=== PATIENT | female | born 2000 | race Two or more races ===

== ENCOUNTER 2020-07-05 22:10 | Inpatient (IN) | payer MEDICAID ==
[2020-07-05] MEDS ORDERED: Cyclobenzaprine 10 MG Tab PO ONE (22:49)
[2020-07-05] MEDS ORDERED: Sodium Chloride 0.9% 10 ML Syringe FLUSH PRN (22:50)
[2020-07-05] MEDS ORDERED: Sodium Chloride 0.9% 10 ML SDV IV PRN (22:50)
[2020-07-05] MEDS ORDERED: Sodium Chloride 0.9% 2.5 ML Syringe FLUSH PRN (22:50)
[2020-07-05] MEDS: Lactated Ringers 1,000 ML IV SCH ×2 (23:00→23:47)
[2020-07-05] MEDS ORDERED: Cyclobenzaprine 10 MG Tab ONE (23:13)
--- NOTE | 2020-07-05 23:16 | PCM.SN.2 ---
- Free Text/Narrative Note: presenting to L&D at 37 3/7 weeks (ZIA: 07/23/20) with complaints of severe pelvic pain/pressure. States that she was adjusted by a chiropractor on Monday (07/01) due to increasing pelvic pain/discomfort. Says that she felt better for a few days, but now it is back. She describes it as intermittent and sharp in low groin. Reports some nausea, but states, "I've been dealing with that my whole ". Also reports some loose stool today. Denies feeling contractions; LOF; vaginal itching, odor, discharge, or bleeding. SVE by nurse noted cervix as long, thick, and closed, -3 station. Vertex presentation by George's and confirmed by handheld ultrasound. Afebrile; VSS. Discuss starting IV and administering a fluid bolus to help with uterine irritability. Will also order 10mg Flexeril.
--- NOTE | 2020-07-06 01:17 | US ---
INDICATION: Amniotic fluid assessment. TECHNIQUE: Ultrasound OB pelvis transabdominal. Real-time medina-scale imaging of the fetus was performed as well as color Doppler and spectral Doppler analysis of the umbilical artery. COMPARISON: None FINDINGS: Clinical Age: 37 weeks 3 days (ZIA 07/23/2020) Sonographic imaging demonstrates a single living intrauterine gestation. Fetus demonstrates a regular cardiac rate of 136 beats per minute. Fetus has a cephalic orientation. The placenta lies anterior without evidence of placenta previa. Amniotic fluid volume appears normal. Amniotic fluid index: 9.5 cm. Cervix is closed measuring 4.1 centimeters. The following biometric measurements were obtained: Biparietal diameter: 9.0 centimeters corresponding to 36 weeks 3 days. Head circumference: 33.5 centimeters corresponding to 38 weeks 2 days. Abdominal circumference: 33.0 centimeters corresponding to 36 weeks 6 days. Femur length: 7.1 centimeters corresponding to 36 weeks 3 days. The weight is estimated at 3056 grams, the 44th percentile. IMPRESSION.: 1. Single live intrauterine gestation with a clinical age of 37 weeks 3 days in vertex presentation. 2. Estimated weight of 3056 grams which is at the 44th percentile. 3. Anterior placenta without perigestational bleed. 4. Normal amniotic fluid index. Dictated by Lyle Barrera MD @ Jul 06 2020 1:11AM Signed by Dr. Lyle Barrera @ Jul 06 2020 1:16AM
[2020-07-06] MEDS ORDERED: Lactated Ringers 1,000 ML IV SCH ×2 (01:45→03:15)
[2020-07-06] MEDS ORDERED: Sodium Chloride 0.9% 10 ML Syringe FLUSH PRN (01:45)
[2020-07-06] MEDS ORDERED: Citric Acid/Sodium Citrate Solution 30 ML Cup PO ONE (01:45)
[2020-07-06] MEDS ORDERED: Sodium Chloride 0.9% 10 ML SDV IV PRN (01:45)
[2020-07-06] MEDS ORDERED: Oxytocin/0.9 % Sodium Chloride 30 UNIT/500 ML BAG IV SCH (01:45)
[2020-07-06] MEDS ORDERED: Sodium Chloride 0.9% 2.5 ML Syringe FLUSH PRN (01:45)
[2020-07-06] MEDS ORDERED: Morphine PF 10 MG/10 ML SDV ONE (01:56)
[2020-07-06] MEDS ORDERED: Propofol 200 MG/20 ML SDV ONE (01:56)
[2020-07-06] MEDS ORDERED: Oxytocin/0.9 % Sodium Chloride 30 UNIT/500 ML BAG ONE (02:02)
[2020-07-06] MEDS ORDERED: Octyl 2-Cyanoacrylate 1 Tube ONE (02:17)
--- NOTE | 2020-07-06 02:17 | PCM.PREANE ---
Preanesthetic Assessment - Procedure Proposed Procedure: emergency section - Anesthesia/Transfusion/Family Hx Anesthesia History: No Prior Anesthesia (previous epidural) Family History of Anesthesia Reaction: Yes Transfusion History: No Prior Transfusion(s) - Review of Systems General: No Symptoms Pulmonary: No Symptoms Cardiovascular: No Symptoms Gastrointestinal: No Symptoms Neurological: No Symptoms Other: Reports: None - Physical Assessment ASA Class: 2E Mental Status: Alert & Oriented x3 Airway Class: Mallampati = 1 Dentition: Reports: Normal Dentition Thyro-Mental Finger Breadths: 3 Mouth Opening Finger Breadths: 3 ROM/Head Extension: Full Lungs: Clear to Auscultation, Normal Respiratory Effort Cardiovascular: Regular Rate, Regular Rhythm - Lab Values: Laboratory Last Values WBC 7.39 K/uL (4.0-11.0) 07/06/20 02:00 RBC 3.63 M/uL (4.30-5.90) L 07/06/20 02:00 Hgb 10.3 g/dL (12.0-16.0) L 07/06/20 02:00 Hct 31.3 % (36.0-46.0) L 07/06/20 02:00 MCV 86.2 fL (80.0-98.0) 07/06/20 02:00 MCH 28.4 pg (27.0-32.0) 07/06/20 02:00 MCHC 32.9 g/dL (31.0-37.0) 07/06/20 02:00 RDW Std Deviation 41.8 fl (28.0-62.0) 07/06/20 02:00 RDW Coeff of Eliane 13 % (11.0-15.0) 07/06/20 02:00 Plt Count 157 K/uL (150-400) 07/06/20 02:00 MPV 10.40 fL (7.40-12.00) 07/06/20 02:00 Nucleated RBC % 0.0 /100WBC 07/06/20 02:00 Nucleated RBCs # 0 K/uL 07/06/20 02:00 SARS-CoV-2 RNA (URI) NEGATIVE (NEGATIVE) 07/05/20 23:30 - Allergies Allergies/Adverse Reactions: Allergies Allergy/AdvReac Type Severity Reaction Status Date / Time No Known Allergies Allergy Verified 07/06/20 02:10 - Blood Blood Available: Yes Product(s) Available: PRBC - Anesthesia Plan Pre-Op Medication Ordered: Antacids - Acknowledgements Anesthesia Type Planned: Spinal Pt an Appropriate Candidate for the Planned Anesthesia: Yes Alternatives and Risks of Anesthesia Discussed w Pt/Guardian: Yes Pt/Guardian Understands and Agrees with Anesthesia Plan: Yes PreAnesthesia Questionnaire - CURRENT (IN HOUSE) MEDS Current Meds: Current Medications Lactated Ringer's (Ringers, Lactated) 1,000 mls @ 999 mls/hr IV ASDIRECTED [facility] Last Admin: 07/05/20 23:47 Dose: 999 mls/hr Documented by: Lactated Ringer's (Ringers, Lactated) 1,000 mls @ 500 mls/hr IV BOLUS [facility] Oxytocin/Sodium Chloride (Oxytocin 30 Unit/500 Ml-Ns) 30 unit in 500 mls @ 250 mls/hr IV TITRATE [facility] Sodium Chloride (Saline Flush) 10 ml FLUSH ASDIRECTED PRN PRN Reason: Keep Vein Open Sodium Chloride (Saline Flush) 2.5 ml FLUSH ASDIRECTED PRN PRN Reason: Keep Vein Open Sodium Chloride (Normal Saline) 10 ml IV ASDIRECTED PRN PRN Reason: IV Use Sodium Chloride (Saline Flush) 10 ml FLUSH ASDIRECTED PRN PRN Reason: Keep Vein Open Sodium Chloride (Saline Flush) 2.5 ml FLUSH ASDIRECTED PRN PRN Reason: Keep Vein Open Sodium Chloride (Normal Saline) 10 ml IV ASDIRECTED PRN PRN Reason: IV Use Discontinued Medications Citric Acid/Sodium Citrate (Bicitra Solution) 30 ml PO ONETIME ONE Stop: 07/06/20 01:46 Cyclobenzaprine HCl (Flexeril) 10 mg PO ONETIME ONE Stop: 07/05/20 22:50 Last Admin: 07/05/20 23:16 Dose: 10 mg Documented by: Cyclobenzaprine HCl (Flexeril) Confirm Administered Dose 10 mg .ROUTE .STK-MED ONE Stop: 07/05/20 23:14 Cefazolin Sodium/Dextrose (Ancef 2 Gm/50 Ml) Confirm Administered Dose 50 mls @ as directed .ROUTE .STK-MED ONE Stop: 07/06/20 02:03 Oxytocin/Sodium Chloride (Oxytocin 30 Unit/500 Ml-Ns) Confirm Administered Dose 30 unit in 500 mls @ as directed .ROUTE .STK-MED ONE Stop: 07/06/20 02:03 Morphine Sulfate (Duramorph Pf) Confirm Administered Dose 10 mg .ROUTE .STK-MED ONE Stop: 07/06/20 01:57 Propofol (Diprivan 20 Ml) Confirm Administered Dose 200 mg .ROUTE .STK-MED ONE Stop: 07/06/20 01:57
[2020-07-06] MEDS ORDERED: ePHEDrine 50 MG/ML SDV ONE (02:39)
[2020-07-06] MEDS ORDERED: Ondansetron 4 MG/2 ML SDV ONE (02:49)
[2020-07-06] MEDS ORDERED: Acetaminophen/oxyCODONE 325-5 MG Tab PO PRN ×2 (03:06→03:12)
[2020-07-06] MEDS ORDERED: Nalbuphine 10 MG/1 ML Vial IVPUSH PRN (03:06)
[2020-07-06] MEDS ORDERED: fentaNYL 100 MCG/2 ML SDV IVPUSH PRN (03:06)
[2020-07-06] MEDS ORDERED: Bisacodyl 10 MG Supp RECTAL PRN (03:12)
[2020-07-06] MEDS ORDERED: Misoprostol 200 MCG Tab RECTAL PRN (03:12)
[2020-07-06] MEDS ORDERED: Methylergonovine 0.2 MG/1 ML Amp IM PRN (03:12)
[2020-07-06] MEDS ORDERED: Oxytocin 10 Units/1 ML SDV IM PRN (03:12)
[2020-07-06] MEDS ORDERED: Ondansetron 4 MG/2 ML SDV IVPUSH PRN (03:12)
[2020-07-06] MEDS ORDERED: Lanolin 100% Cream 7 GM Tube TOP PRN (03:12)
[2020-07-06] MEDS ORDERED: diphenhydrAMINE 50 MG/ML SDV IVPUSH PRN (03:12)
[2020-07-06] MEDS ORDERED: Tranexamic Acid 1,000 MG in Sodium Chloride 0.9% 100 ML IV PRN (03:12)
--- NOTE | 2020-07-06 03:15 | PCM.OPNOTE ---
- General Post-Op/Procedure Note Date of Surgery/Procedure: 07/06/20 Operative Procedure(s): Primary C/section. Pre Op Diagnosis: [id number]+ wks possible abroption. Post-Op Diagnosis: Same Anesthesia Technique: Spinal Primary Surgeon: Regan Mahajan Day Care Attendant: Gisel Floyd EBL in mLs: 700 Complications: None Condition: Good
[2020-07-06] MEDS: Ketorolac 30 MG/ML SDV IVPUSH SCH ×4 (03:51→22:08)
--- NOTE | 2020-07-06 03:51 | PCM.LDHP ---
L&D History of Present Illness - General Date of Service: 07/05/20 Admit Problem/Dx: Patient Status Order with Admit Dx/Problem 07/05/20 22:37 Patient Status [ADT] Routine 07/06/20 01:46 Patient Status [ADT] Routine 07/06/20 03:12 Patient Status [ADT] Routine Admission Diagnosis/Problem Admission Diagnosis/Problem 07/06/20 03:45 presenting to L&D at 37 3/7 weeks (ZIA: 07/23/20) with complaints of severe pelvic pain/pressure. States that she was adjusted by a chiropractor on Monday (07/01) due to increasing pelvic pain/discomfort. Says that she felt better for a few days, but now it is back. She describes it as intermittent and sharp in low groin. Reports some nausea, but states, "I've been dealing with that my whole ". Also reports some loose stool today. Denies feeling contractions; LOF; vaginal itching, odor, discharge, or bleeding. SVE by nurse noted cervix as long, thick, and closed, -3 station. Vertex presentation by George'alok and confirmed by handheld ultrasound. Afebrile; VSS. Source of Information: Patient History Limitations: Reports: No Limitations - Related Data Allergies/Adverse Reactions: Allergies Allergy/AdvReac Type Severity Reaction Status Date / Time No Known Allergies Allergy Verified 07/06/20 02:10 H&P Review of Systems - Review of Systems: Review Of Systems: See Below General: Reports: No Symptoms HEENT: Reports: No Symptoms Pulmonary: Reports: No Symptoms Cardiovascular: Reports: No Symptoms Gastrointestinal: Reports: Abdominal Pain Genitourinary: Reports: No Symptoms Musculoskeletal: Reports: No Symptoms Skin: Reports: No Symptoms Psychiatric: Reports: No Symptoms Neurological: Reports: No Symptoms Hematologic/Lymphatic: Reports: No Symptoms Immunologic: Reports: No Symptoms L&D Exam - Exam Exam: See Below - Vital Signs Vital Signs: Last Vital Signs Temp 98.2 F 07/06/20 03:28 Pulse 67 07/06/20 03:45 Resp 12 07/06/20 03:45 BP 102/45 L 07/06/20 03:45 Pulse Ox 97 07/06/20 03:45 - OB Specific Movement: Active Heart Tones: Present Heart Rate (FHR) Variability: Moderate (6-25 bmp) Presentation: Vertex - Delatorre Score Delatorre Score Cervix Position: Posterior Delatorre Score Consistency: Firm Delatorre Score Effacement: 0-30% Delatorre Score Dilation: Closed Delatorre Score Infant's Station: -3 Delatorre Score Total: 0 - Exam General: Alert, Oriented, Mild Distress Lungs: Normal Respiratory Effort Cardiovascular: Regular Rate, Regular Rhythm GI/Abdominal Exam: Soft Rectal Exam: Deferred Genitourinary: Deferred Back Exam: Normal Inspection, Full Range of Motion Extremities: Normal Inspection, Normal Range of Motion, Non-Tender, Normal Capillary Refill Skin: Warm, Dry, Intact Neurological: Strength Equal Bilateral, Normal Speech, Normal Tone, Sensation Intact Psychiatric: Alert, Normal Affect, Normal Mood - Patient Data Lab Results Last 24 hrs: Laboratory Results - last 24 hr 07/05/20 07/06/20 07/06/20 Range/Units 23:30 02:00 02:00 WBC 7.39 (4.0-11.0) K/uL RBC 3.63 L (4.30-5.90) M/uL Hgb 10.3 L (12.0-16.0) g/dL Hct 31.3 L (36.0-46.0) % MCV 86.2 (80.0-98.0) fL MCH 28.4 (27.0-32.0) pg MCHC 32.9 (31.0-37.0) g/dL RDW Std Deviation 41.8 (28.0-62.0) fl RDW Coeff of Eliane 13 (11.0-15.0) % Plt Count 157 (150-400) K/uL MPV 10.40 (7.40-12.00) fL Nucleated RBC % 0.0 /100WBC Nucleated RBCs # 0 K/uL SARS-CoV-2 RNA (URI) NEGATIVE (NEGATIVE) Blood Type A POSITIVE Antibody Screen NEGATIVE Result Diagrams: 07/06/20 02:00 - Problem List (1) Supervision of normal IUP (intrauterine ) in multigravida SNOMED Code(s): 092705129, 198828109, 776434840 ICD Code: Z34.80 - ENCOUNTER FOR SUPRVSN OF NORMAL , UNSP TRIMESTER Status: Acute Priority: High Current Visit: Yes Qualifiers: Trimester: third trimester Qualified Code(s): Z34.83 - Encounter for supervision of other normal , third trimester Problem List Initiated/Reviewed/Updated: Yes Orders Last 24hrs: Active Orders 24 hr Category Date Time Status Patient Status [ADT] Routine ADT 07/06/20 03:12 Active Ambulate [RC] PER UNIT ROUTINE Care 07/06/20 03:12 Active Antiembolic Devices [RC] PER UNIT ROUTINE Care 07/06/20 03:12 Active Bradycardia-Neuroaxis [employer] [RC] ROUTINE Care 07/06/20 03:05 Active Communication Order [RC] PER UNIT ROUTINE Care 07/06/20 03:12 Active Communication Order [RC] PER UNIT ROUTINE Care 07/06/20 03:12 Active Communication Order [RC] Per Unit Routine Care 07/06/20 03:12 Active Non Stress Test [RC] PER UNIT ROUTINE Care 07/05/20 22:37 Active Non Stress Test [RC] PER UNIT ROUTINE Care 07/06/20 01:46 Active Hypertension-Neuroaxis [employer] [RC] ROUTINE Care 07/06/20 03:05 Active Hypotension-Neuroaxis [employer] [RC] ROUTINE Care 07/06/20 03:05 Active May Shower [RC] ASDIRECTED Care 07/06/20 03:12 Active Notify Provider Vital Signs [RC] PRN Care 07/06/20 01:49 Active Oxygen Therapy [RC] PER UNIT ROUTINE Care 07/06/20 03:06 Active Procedure Site Prep Instruct [RC] ASDIRECTED Care 07/06/20 01:46 Active RT Incentive Spirometry [RC] Q2HWA Care 07/06/20 03:12 Active Up ad Isabel [RC] ASDIRECTED Care 07/05/20 22:37 Active Up ad Isabel [RC] ASDIRECTED Care 07/06/20 01:46 Active Verify Patient Consent Obtain [RC] ASDIRECTED Care 07/06/20 01:46 Active Vital Signs [RC] PER UNIT ROUTINE Care 07/05/20 22:37 Active Vital Signs [RC] PER UNIT ROUTINE Care 07/06/20 01:46 Active Vital Signs [RC] PER UNIT ROUTINE Care 07/06/20 03:12 Active Vital Signs [RC] Q1H Care 07/06/20 03:06 Active HEMOGLOBIN/HEMATOCRIT,HH [HEME] Timed Lab 07/07/20 05:11 Ordered RPR (SYPHILIS SERO) W/ RFLX [REF] Routine Lab 07/06/20 02:00 Received Acetaminophen/oxyCODONE [Percocet 325-5 MG] Med 07/06/20 03:06 Active 1 tab PO ONETIME PRN Acetaminophen/oxyCODONE [Percocet 325-5 MG] Med 07/06/20 03:12 Active 1 tab PO Q4H PRN Acetaminophen/oxyCODONE [Percocet 325-5 MG] Med 07/06/20 03:12 Active 2 tab PO Q4H PRN Docusate Sodium [Colace] Med 07/06/20 09:00 Active 100 mg PO BID Ibuprofen [Motrin] Med 07/07/20 09:00 Active 800 mg PO Q8H PRN Ketorolac [Toradol] Med 07/06/20 03:15 Active 30 mg IVPUSH Q6H Lactated Ringers [Ringers, Lactated] 1,000 ml Med 07/05/20 23:00 Active IV ASDIRECTED Lactated Ringers [Ringers, Lactated] 1,000 ml Med 07/06/20 03:15 Active IV ASDIRECTED Lactated Ringers [Ringers, Lactated] 1,000 ml Med 07/06/20 01:45 Active IV BOLUS Lanolin [Lansinoh HPA] Med 07/06/20 03:12 Active See Dose Instructions TOP ASDIRECTED PRN Methylergonovine [Methergine] Med 07/06/20 03:12 Active 0.2 mg IM ONETIME PRN Nalbuphine [Nubain] Med 07/06/20 03:06 Active 2.5 mg IVPUSH Q3H PRN Ondansetron [Zofran] Med 07/06/20 03:12 Active 4 mg IVPUSH Q4H PRN Oxytocin [Pitocin] Med 07/06/20 03:12 Active 10 unit IM ASDIRECTED PRN Oxytocin/0.9 % Sodium Chloride [Oxytocin 30 Unit/500 ML Med 07/06/20 01:45 Active -NS] 30 unit in 500 ml IV TITRATE Sodium Chloride 0.9% [Normal Saline] Med 07/05/20 22:50 Active 10 ml IV ASDIRECTED PRN Sodium Chloride 0.9% [Normal Saline] Med 07/06/20 01:45 Active 10 ml IV ASDIRECTED PRN Sodium Chloride 0.9% [Saline Flush] Med 07/05/20 22:50 Active 10 ml FLUSH ASDIRECTED PRN Sodium Chloride 0.9% [Saline Flush] Med 07/06/20 01:45 Active 10 ml FLUSH ASDIRECTED PRN Sodium Chloride 0.9% [Saline Flush] Med 07/05/20 22:50 Active 2.5 ml FLUSH ASDIRECTED PRN Sodium Chloride 0.9% [Saline Flush] Med 07/06/20 01:45 Active 2.5 ml FLUSH ASDIRECTED PRN Tranexamic Acid [Cyklokapron] 1,000 mg Med 07/06/20 03:12 Active Sodium Chloride 0.9% [Normal Saline] 100 ml IV ONETIME bisacodyL [Dulcolax] Med 07/06/20 03:12 Active 10 mg RECTAL ONETIME PRN diphenhydrAMINE [Benadryl] Med 07/06/20 03:12 Active 25 mg IVPUSH Q6H PRN fentaNYL [Sublimaze] Med 07/06/20 03:06 Active 50 mcg IVPUSH Q5M PRN miSOPROStoL [Cytotec] Med 07/06/20 03:12 Active 1,000 mcg RECTAL ONETIME PRN AN Neuroaxis [employer] Precaution Reflex [OM.PC] PER Oth 07/06/20 03:15 Ordered UNIT ROUTINE AN Neuroaxis [employer] Precaution Reflex [OM.PC] PER Ot 07/07/20 03:15 Ordered UNIT ROUTINE Assess Lochia [WOMSER] Per Unit Routine Ot 07/06/20 03:12 Ordered Assess Uterine Involution [WOMSER] Per Unit Routine Ot 07/06/20 03:12 Ordered Breast Pump [WOMSER] Per Unit Routine Ot 07/06/20 03:12 Ordered Peripheral IV Discontinue [OM.PC] Routine Ot 07/06/20 03:12 Ordered Peripheral IV Insertion Adult [OM.PC] Routine Ot 07/05/20 22:50 Ordered Peripheral IV Insertion Adult [OM.PC] Routine Ot 07/06/20 01:46 Ordered Schedule Procedure [COMM] Per Unit Routine Oth 07/06/20 01:46 Ordered Sequential Compression Device [OM.PC] Per Unit Routine Oth 07/06/20 03:12 Ordered Resuscitation Status Routine Resus Stat 07/05/20 22:37 Ordered Medication Orders Bisacodyl (Dulcolax) 10 mg RECTAL ONETIME PRN PRN Reason: Constipation Diphenhydramine HCl (Benadryl) 25 mg IVPUSH Q6H PRN PRN Reason: Itching or Nausea Docusate Sodium (Colace) 100 mg PO BID [facility] Emollient Ointment (Lansinoh Hpa) 0 gm TOP ASDIRECTED PRN PRN Reason: Sore Nipples Fentanyl (Sublimaze) 50 mcg IVPUSH Q5M PRN PRN Reason: Pain (severe 7-10) Stop: 07/07/20 03:06 Lactated Ringer's (Ringers, Lactated) 1,000 mls @ 999 mls/hr IV ASDIRECTED [facility] Last Admin: 07/05/20 23:47 Dose: 999 mls/hr Documented by: Infusion: 07/05/20 23:47 Dose: 999 mls/hr Documented by: Admin: 07/05/20 23:00 Dose: 999 mls/hr Documented by: LISA Lactated Ringer's (Ringers, Lactated) 1,000 mls @ 500 mls/hr IV BOLUS [facility] Oxytocin/Sodium Chloride (Oxytocin 30 Unit/500 Ml-Ns) 30 unit in 500 mls @ 250 mls/hr IV TITRATE [facility] Lactated Ringer's (Ringers, Lactated) 1,000 mls @ 125 mls/hr IV ASDIRECTED [facility] Tranexamic Acid 1,000 mg/ (Sodium Chloride) 110 mls @ 660 mls/hr IV ONETIME PRN PRN Reason: Bleeding Ibuprofen (Motrin) 800 mg PO Q8H PRN PRN Reason: mild pain or fever Ketorolac Tromethamine (Toradol) 30 mg IVPUSH Q6H [facility] Stop: 07/07/20 03:16 Methylergonovine Maleate (Methergine) 0.2 mg IM ONETIME PRN PRN Reason: Excessive Vaginal Bleeding Misoprostol (Cytotec) 1,000 mcg RECTAL ONETIME PRN PRN Reason: excessive bleeding Nalbuphine HCl (Nubain) 2.5 mg IVPUSH Q3H PRN PRN Reason: Pruritis Stop: 07/07/20 03:06 Ondansetron HCl (Zofran) 4 mg IVPUSH Q4H PRN PRN Reason: Nausea/Vomiting Oxycodone/Acetaminophen (Percocet 325-5 Mg) 1 tab PO ONETIME PRN PRN Reason: Pain (moderate 4-6) Oxycodone/Acetaminophen (Percocet 325-5 Mg) 1 tab PO Q4H PRN PRN Reason: Pain (moderate 4-6) Oxycodone/Acetaminophen (Percocet 325-5 Mg) 2 tab PO Q4H PRN PRN Reason: Pain (moderate 4-6) Oxytocin (Pitocin) 10 unit IM ASDIRECTED PRN PRN Reason: Excessive Vaginal Bleeding Sodium Chloride (Saline Flush) 10 ml FLUSH ASDIRECTED PRN PRN Reason: Keep Vein Open Sodium Chloride (Saline Flush) 2.5 ml FLUSH ASDIRECTED PRN PRN Reason: Keep Vein Open Sodium Chloride (Normal Saline) 10 ml IV ASDIRECTED PRN PRN Reason: IV Use Sodium Chloride (Saline Flush) 10 ml FLUSH ASDIRECTED PRN PRN Reason: Keep Vein Open Sodium Chloride (Saline Flush) 2.5 ml FLUSH ASDIRECTED PRN PRN Reason: Keep Vein Open Sodium Chloride (Normal Saline) 10 ml IV ASDIRECTED PRN PRN Reason: IV Use Assessment/Plan Comment:: A: presenting to L&D at 37 3/7 weeks (ZIA: 07/23/20) with complaints of severe pelvic pain/pressure. States that she was adjusted by a chiropractor on Monday (07/01) due to increasing pelvic pain/discomfort. Says that she felt better for a few days, but now it is back. She describes it as intermittent and sharp in low groin. Reports some nausea, but states, "I've been dealing with that my whole ". Also reports some loose stool today. Denies feeling contractions; LOF; vaginal itching, odor, discharge, or bleeding. SVE by nurse noted cervix as long, thick, and closed, -3 station. Vertex presentation by George'alok and confirmed by handheld ultrasound. Afebrile; VSS. P: Will give IV fluids and flexeril 10 mg; continuous FHR tracing to be done. Dr. Mahajan updated.
--- NOTE | 2020-07-06 04:02 | PCM.POSTAN ---
POST ANESTHESIA ASSESSMENT - MENTAL STATUS Mental Status: Alert, Oriented - VITAL SIGNS Vital Signs: Last Vital Signs Temp 36.8 C 07/06/20 03:28 Pulse 66 07/06/20 03:55 Resp 14 07/06/20 03:55 BP 99/56 L 07/06/20 03:55 Pulse Ox 98 07/06/20 03:55 - RESPIRATORY Respiratory Status: Respiratory Rate WNL, Airway Patent, O2 Saturation Stable - CARDIOVASCULAR CV Status: Pulse Rate WNL, Blood Pressure Stable - GASTROINTESTINAL GI Status: No Symptoms - PAIN Pain Score: 0 - POST OP HYDRATION Hydration Status: Adequate & Stable
--- NOTE | 2020-07-06 08:01 | OR ---
SURGEON: Regan Mahajan MD DATE OF PROCEDURE: 07/06/2020 PREOPERATIVE DIAGNOSES: 1. Intrauterine , 37 + 3. 2. Possible abruption. POSTOPERATIVE DIAGNOSES: 1. Intrauterine , 37 + 3. 2. Possible abruption. OPERATION PERFORMED: Primary low-transverse section. PRIMARY SURGEON: Regan Mahajan MD WEIGHTER: Gisel Floyd, certified nurse [employer]. ANESTHESIA: Spinal. ANESTHESIOLOGISTS: Roxy Young and Dr. Casanova. ESTIMATED BLOOD LOSS: 700 mL. COMPLICATIONS: None. FINDING: A viable male fetus. scores are reported to be 8 and 9. The weight is not available at the time of the dictation. INDICATION FOR SURGERY: This patient is 37 weeks + 3. She is para 1-0-0-1. She is status post normal spontaneous vaginal delivery. She is followed in our clinic primarily by our Nurse Midwifery Service. The patient presented to Labor and Delivery with sudden onset of abdominal pain and back pain, intense pain. The patient was placed on the monitor. heart rate was between 110 and 125 with a flat minimum variability and occasional late. The patient had an ultrasound, which was nonconclusive for abruption. However, clinically, the patient is behaving like she has maybe beginning of abruption of placenta. I explained to the patient and her she was only dilated to 1 cm and 50%, and so we proceeded to do a primary low-transverse section. PROCEDURE IN DETAIL: The patient was brought to the OR and properly identified, and after an adequate level of spinal anesthesia, the patient was prepped and draped in sterile fashion as usual. A low-transverse Pfannenstiel skin incision was done. Sarita's fascia and rectus fascia were opened in the direction of the incision. The 2 recti muscles were , and the peritoneal cavity was entered. A bladder flap was raised in the usual manner, pushing the bladder away from the lower uterine segment. A low-transverse uterine incision was done and extended manually, and the fetus was in a vertex position, delivered without any problem, cried immediately, and handed to the undercutter and resuscitating team. The placenta delivered spontaneous, complete, and intact and was sent for histopathology, and then, repair of the lower uterine segment was done with 2-0 Vicryl continuous interlocking in 2 layers. Reperitonealization was done with 2- 0 Vicryl continuous. Inspection of the lower uterine segment showed no oozing and no bleeding, and then, the peritoneal cavity was evacuated completely from all blood and blood clot and closed with 3-0 Vicryl continuous. The rectus fascia was closed with #1 PDS double strand continuous and Sarita's fascia with 3-0 Vicryl continuous and the skin closed with 3-0 Stratafix in a subcuticular fashion and Dermabond. Instrument and sponge count was correct. The patient tolerated the procedure well and went to the recovery room in stable general condition. DOMINGO / CASSANDRA /[id number]
[2020-07-06] MEDS: Docusate Sodium 100 MG Cap PO SCH ×2 (09:24→22:08)
--- NOTE | 2020-07-06 09:59 | PCM48HPAN ---
Post Anesthesia Note - EVALUATION WITHIN 48HRS OF ANESTHETIC Vital Signs in Normal Range: Yes Patient Participated in Evaluation: Yes Respiratory Function Stable: Yes Airway Patent: Yes Cardiovascular Function Stable: Yes Hydration Status Stable: Yes Pain Control Satisfactory: Yes Nausea and Vomiting Control Satisfactory: Yes Mental Status Recovered: Yes Vital Signs: Last Vital Signs Temp 36.9 C 07/06/20 07:33 Pulse 86 07/06/20 07:33 Resp 16 07/06/20 07:33 BP 107/46 L 07/06/20 07:33 Pulse Ox 99 07/06/20 07:33
[2020-07-07] MEDS: Ketorolac 30 MG/ML SDV IVPUSH SCH (03:49)
--- NOTE | 2020-07-07 09:41 | PCM.SURGPN ---
- General Info Date of Service: 07/07/20 POD#: 1 Functional Status: Reports: Pain Controlled - Review of Systems General: Reports: No Symptoms HEENT: Reports: No Symptoms Pulmonary: Reports: No Symptoms Cardiovascular: Reports: No Symptoms Gastrointestinal: Reports: No Symptoms Genitourinary: Reports: No Symptoms Musculoskeletal: Reports: No Symptoms Skin: Reports: No Symptoms Neurological: Reports: No Symptoms Psychiatric: Reports: No Symptoms - Patient Data Vitals - Most Recent: Last Vital Signs Temp 36.3 C 07/07/20 09:01 Pulse 73 07/07/20 09:01 Resp 18 07/07/20 09:01 BP 114/63 07/07/20 09:01 Pulse Ox 99 07/07/20 09:01 Weight - Most Recent: 81.647 kg I&O - Last 24 Hours: Intake & Output 07/06/20 07/07/20 07/07/20 22:59 06:59 14:59 Output Total 2275 Balance -2275 Lab Results Last 24 Hrs: Laboratory Results - last 24 hr 07/07/20 Range/Units 05:30 Hgb 8.8 L (12.0-16.0) g/dL Hct 27.3 L (36.0-46.0) % Med Orders - Current: Current Medications Bisacodyl (Dulcolax) 10 mg RECTAL ONETIME PRN PRN Reason: Constipation Diphenhydramine HCl (Benadryl) 25 mg IVPUSH Q6H PRN PRN Reason: Itching or Nausea Docusate Sodium (Colace) 100 mg PO BID [facility] Last Admin: 07/06/20 22:08 Dose: 100 mg Documented by: Emollient Ointment (Lansinoh Hpa) 0 gm TOP ASDIRECTED PRN PRN Reason: Sore Nipples Lactated Ringer's (Ringers, Lactated) 1,000 mls @ 999 mls/hr IV ASDIRECTED [facility] Last Admin: 07/05/20 23:47 Dose: 999 mls/hr Documented by: Lactated Ringer's (Ringers, Lactated) 1,000 mls @ 500 mls/hr IV BOLUS [facility] Oxytocin/Sodium Chloride (Oxytocin 30 Unit/500 Ml-Ns) 30 unit in 500 mls @ 250 mls/hr IV TITRATE [facility] Lactated Ringer's (Ringers, Lactated) 1,000 mls @ 125 mls/hr IV ASDIRECTED [facility] Tranexamic Acid 1,000 mg/ (Sodium Chloride) 110 mls @ 660 mls/hr IV ONETIME PRN PRN Reason: Bleeding Ibuprofen (Motrin) 800 mg PO Q8H PRN PRN Reason: mild pain or fever Methylergonovine Maleate (Methergine) 0.2 mg IM ONETIME PRN PRN Reason: Excessive Vaginal Bleeding Misoprostol (Cytotec) 1,000 mcg RECTAL ONETIME PRN PRN Reason: excessive bleeding Ondansetron HCl (Zofran) 4 mg IVPUSH Q4H PRN PRN Reason: Nausea/Vomiting Oxycodone/Acetaminophen (Percocet 325-5 Mg) 1 tab PO ONETIME PRN PRN Reason: Pain (moderate 4-6) Oxycodone/Acetaminophen (Percocet 325-5 Mg) 1 tab PO Q4H PRN PRN Reason: Pain (moderate 4-6) Oxycodone/Acetaminophen (Percocet 325-5 Mg) 2 tab PO Q4H PRN PRN Reason: Pain (moderate 4-6) Oxytocin (Pitocin) 10 unit IM ASDIRECTED PRN PRN Reason: Excessive Vaginal Bleeding Sodium Chloride (Saline Flush) 10 ml FLUSH ASDIRECTED PRN PRN Reason: Keep Vein Open Sodium Chloride (Saline Flush) 2.5 ml FLUSH ASDIRECTED PRN PRN Reason: Keep Vein Open Sodium Chloride (Normal Saline) 10 ml IV ASDIRECTED PRN PRN Reason: IV Use Sodium Chloride (Saline Flush) 10 ml FLUSH ASDIRECTED PRN PRN Reason: Keep Vein Open Sodium Chloride (Saline Flush) 2.5 ml FLUSH ASDIRECTED PRN PRN Reason: Keep Vein Open Sodium Chloride (Normal Saline) 10 ml IV ASDIRECTED PRN PRN Reason: IV Use Discontinued Medications Citric Acid/Sodium Citrate (Bicitra Solution) 30 ml PO ONETIME ONE Stop: 07/06/20 01:46 Last Admin: 07/06/20 02:25 Dose: 30 ml Documented by: Cyclobenzaprine HCl (Flexeril) 10 mg PO ONETIME ONE Stop: 07/05/20 22:50 Last Admin: 07/05/20 23:16 Dose: 10 mg Documented by: Cyclobenzaprine HCl (Flexeril) Confirm Administered Dose 10 mg .ROUTE .STK-MED ONE Stop: 07/05/20 23:14 Last Admin: 07/06/20 22:20 Dose: Not Given Documented by: Ephedrine Sulfate (Ephedrine Sulfate) Confirm Administered Dose 50 mg .ROUTE .STK-MED ONE Stop: 07/06/20 02:40 Fentanyl (Sublimaze) 50 mcg IVPUSH Q5M PRN PRN Reason: Pain (severe 7-10) Stop: 07/07/20 03:06 Cefazolin Sodium/Dextrose (Ancef 2 Gm/50 Ml) Confirm Administered Dose 50 mls @ as directed .ROUTE .STK-MED ONE Stop: 07/06/20 02:03 Last Admin: 07/06/20 22:18 Dose: Not Given Documented by: Oxytocin/Sodium Chloride (Oxytocin 30 Unit/500 Ml-Ns) Confirm Administered Dose 30 unit in 500 mls @ as directed .ROUTE .STK-MED ONE Stop: 07/06/20 02:03 Last Admin: 07/06/20 22:18 Dose: Not Given Documented by: Ketorolac Tromethamine (Toradol) 30 mg IVPUSH Q6H [facility] Stop: 07/07/20 03:16 Last Admin: 07/07/20 03:49 Dose: 30 mg Documented by: Morphine Sulfate (Duramorph Pf) Confirm Administered Dose 10 mg .ROUTE .STK-MED ONE Stop: 07/06/20 01:57 Nalbuphine HCl (Nubain) 2.5 mg IVPUSH Q3H PRN PRN Reason: Pruritis Stop: 07/07/20 03:06 Last Admin: 07/06/20 04:51 Dose: 2.5 mg Documented by: Octyl Cyanoacrylate (Dermabond Advance) Confirm Administered Dose 1 applic .ROUTE .STK-MED ONE Stop: 07/06/20 02:18 Last Admin: 07/06/20 22:18 Dose: Not Given Documented by: Ondansetron HCl (Zofran) Confirm Administered Dose 4 mg .ROUTE .STK-MED ONE Stop: 07/06/20 02:50 Propofol (Diprivan 20 Ml) Confirm Administered Dose 200 mg .ROUTE .STK-MED ONE Stop: 07/06/20 01:57 - Exam Wound/Incisions: Healing Well General: Alert, Oriented HEENT: Pupils Equal Neck: Supple Lungs: Clear to Auscultation, Normal Respiratory Effort Cardiovascular: Regular Rate, Regular Rhythm GI/Abdominal Exam: Normal Bowel Sounds, Soft, Non-Tender, No Organomegaly, No Distention, No Abnormal Bruit, No Mass, Pelvis Stable Extremities: Normal Inspection, Normal Range of Motion, Non-Tender, No Pedal Edema, Normal Capillary Refill Skin: Warm, Dry, Intact Neurological: No New Focal Deficit Psy/Mental Status: Alert, Normal Affect, Normal Mood Sepsis Event Note - Evaluation Sepsis Screening Result: No Definite Risk - Focused Exam Vital Signs: Vital Signs Temp Pulse Resp BP BP Pulse Ox 07/07/20 09:01 36.3 C 73 18 114/63 99 07/07/20 04:01 36.2 C 89 16 114/56 L 99 07/07/20 04:00 36.4 C 70 18 108/54 L 96 07/07/20 02:45 82 17 98 07/07/20 02:00 85 16 98 07/07/20 01:00 87 16 97 07/07/20 00:10 36.7 C 104 H 16 115/58 L 96 07/06/20 23:00 67 16 95 07/06/20 22:15 83 17 97 - Problem List Review Problem List Initiated/Reviewed/Updated: Yes - My Orders Last 24 Hours: Active Orders 24 hr Category Date Time Status Docusate Sodium [Colace] Med 07/06/20 09:00 Active 100 mg PO BID Ibuprofen [Motrin] Med 07/07/20 09:00 Active 800 mg PO Q8H PRN AN Neuroaxis Duramorph Precaution Reflex [OM.PC] PER Oth 07/07/20 03:15 Ordered UNIT ROUTINE Medication Orders Bisacodyl (Dulcolax) 10 mg RECTAL ONETIME PRN PRN Reason: Constipation Diphenhydramine HCl (Benadryl) 25 mg IVPUSH Q6H PRN PRN Reason: Itching or Nausea Docusate Sodium (Colace) 100 mg PO BID [facility] Last Admin: 07/06/20 22:08 Dose: 100 mg Documented by: Admin: 07/06/20 09:24 Dose: 100 mg Documented by: MARTI Emollient Ointment (Lansinoh Hpa) 0 gm TOP ASDIRECTED PRN PRN Reason: Sore Nipples Lactated Ringer's (Ringers, Lactated) 1,000 mls @ 999 mls/hr IV ASDIRECTED [facility] Last Admin: 07/05/20 23:47 Dose: 999 mls/hr Documented by: Infusion: 07/05/20 23:47 Dose: 999 mls/hr Documented by: Admin: 07/05/20 23:00 Dose: 999 mls/hr Documented by: LISA Lactated Ringer's (Ringers, Lactated) 1,000 mls @ 500 mls/hr IV BOLUS [facility] Oxytocin/Sodium Chloride (Oxytocin 30 Unit/500 Ml-Ns) 30 unit in 500 mls @ 250 mls/hr IV TITRATE [facility] Lactated Ringer's (Ringers, Lactated) 1,000 mls @ 125 mls/hr IV ASDIRECTED [facility] Tranexamic Acid 1,000 mg/ (Sodium Chloride) 110 mls @ 660 mls/hr IV ONETIME PRN PRN Reason: Bleeding Ibuprofen (Motrin) 800 mg PO Q8H PRN PRN Reason: mild pain or fever Methylergonovine Maleate (Methergine) 0.2 mg IM ONETIME PRN PRN Reason: Excessive Vaginal Bleeding Misoprostol (Cytotec) 1,000 mcg RECTAL ONETIME PRN PRN Reason: excessive bleeding Ondansetron HCl (Zofran) 4 mg IVPUSH Q4H PRN PRN Reason: Nausea/Vomiting Oxycodone/Acetaminophen (Percocet 325-5 Mg) 1 tab PO ONETIME PRN PRN Reason: Pain (moderate 4-6) Oxycodone/Acetaminophen (Percocet 325-5 Mg) 1 tab PO Q4H PRN PRN Reason: Pain (moderate 4-6) Oxycodone/Acetaminophen (Percocet 325-5 Mg) 2 tab PO Q4H PRN PRN Reason: Pain (moderate 4-6) Oxytocin (Pitocin) 10 unit IM ASDIRECTED PRN PRN Reason: Excessive Vaginal Bleeding Sodium Chloride (Saline Flush) 10 ml FLUSH ASDIRECTED PRN PRN Reason: Keep Vein Open Sodium Chloride (Saline Flush) 2.5 ml FLUSH ASDIRECTED PRN PRN Reason: Keep Vein Open Sodium Chloride (Normal Saline) 10 ml IV ASDIRECTED PRN PRN Reason: IV Use Sodium Chloride (Saline Flush) 10 ml FLUSH ASDIRECTED PRN PRN Reason: Keep Vein Open Sodium Chloride (Saline Flush) 2.5 ml FLUSH ASDIRECTED PRN PRN Reason: Keep Vein Open Sodium Chloride (Normal Saline) 10 ml IV ASDIRECTED PRN PRN Reason: IV Use - Assessment Assessment (Free Text/Narrative):: Source emergency section postoperative day #1 the patient is doing well she have a regular diet her pain is under control no vaginal bleeding and had incision is clean and dry we are planning to send her home in a.m.
[2020-07-07] MEDS: Docusate Sodium 100 MG Cap PO SCH ×2 (09:43→20:59)
[2020-07-07] MEDS: Ibuprofen 800 MG Tab PO PRN ×2 (09:43→17:36)
[2020-07-07] MEDS: Acetaminophen/oxyCODONE 325-5 MG Tab PO PRN ×2 (19:31→23:54)
[2020-07-08] MEDS: Ibuprofen 800 MG Tab PO PRN (03:55)
[2020-07-08] MEDS: Acetaminophen/oxyCODONE 325-5 MG Tab PO PRN ×2 (03:56→09:03)
[2020-07-08] MEDS: Docusate Sodium 100 MG Cap PO SCH (09:03)
--- NOTE | 2020-07-08 09:14 | PCM.PNPP ---
- General Info Date of Service: 07/08/20 Functional Status: Reports: Pain Controlled - Review of Systems General: Reports: No Symptoms HEENT: Reports: No Symptoms Pulmonary: Reports: No Symptoms Cardiovascular: Reports: No Symptoms Gastrointestinal: Reports: No Symptoms Genitourinary: Reports: No Symptoms Musculoskeletal: Reports: No Symptoms Skin: Reports: No Symptoms Neurological: Reports: No Symptoms Psychiatric: Reports: No Symptoms - General Info Date of Service: 07/08/20 - Patient Data Vital Signs - Most Recent: Last Vital Signs Temp 36.6 C 07/08/20 08:53 Pulse 78 07/08/20 08:53 Resp 15 07/08/20 08:53 BP 123/59 L 07/08/20 08:53 Pulse Ox 98 07/08/20 08:53 Weight - Most Recent: 81.647 kg Med Orders - Current: Current Medications Bisacodyl (Dulcolax) 10 mg RECTAL ONETIME PRN PRN Reason: Constipation Diphenhydramine HCl (Benadryl) 25 mg IVPUSH Q6H PRN PRN Reason: Itching or Nausea Docusate Sodium (Colace) 100 mg PO BID [facility] Last Admin: 07/08/20 09:03 Dose: 100 mg Documented by: Emollient Ointment (Lansinoh Hpa) 0 gm TOP ASDIRECTED PRN PRN Reason: Sore Nipples Lactated Ringer's (Ringers, Lactated) 1,000 mls @ 999 mls/hr IV ASDIRECTED [facility] Last Admin: 07/05/20 23:47 Dose: 999 mls/hr Documented by: Lactated Ringer's (Ringers, Lactated) 1,000 mls @ 500 mls/hr IV BOLUS [facility] Oxytocin/Sodium Chloride (Oxytocin 30 Unit/500 Ml-Ns) 30 unit in 500 mls @ 250 mls/hr IV TITRATE [facility] Lactated Ringer's (Ringers, Lactated) 1,000 mls @ 125 mls/hr IV ASDIRECTED [facility] Tranexamic Acid 1,000 mg/ (Sodium Chloride) 110 mls @ 660 mls/hr IV ONETIME PRN PRN Reason: Bleeding Ibuprofen (Motrin) 800 mg PO Q8H PRN PRN Reason: mild pain or fever Last Admin: 07/08/20 03:55 Dose: 800 mg Documented by: Methylergonovine Maleate (Methergine) 0.2 mg IM ONETIME PRN PRN Reason: Excessive Vaginal Bleeding Misoprostol (Cytotec) 1,000 mcg RECTAL ONETIME PRN PRN Reason: excessive bleeding Ondansetron HCl (Zofran) 4 mg IVPUSH Q4H PRN PRN Reason: Nausea/Vomiting Oxycodone/Acetaminophen (Percocet 325-5 Mg) 1 tab PO ONETIME PRN PRN Reason: Pain (moderate 4-6) Oxycodone/Acetaminophen (Percocet 325-5 Mg) 1 tab PO Q4H PRN PRN Reason: Pain (moderate 4-6) Last Admin: 07/08/20 09:03 Dose: 1 tab Documented by: Oxycodone/Acetaminophen (Percocet 325-5 Mg) 2 tab PO Q4H PRN PRN Reason: Pain (moderate 4-6) Oxytocin (Pitocin) 10 unit IM ASDIRECTED PRN PRN Reason: Excessive Vaginal Bleeding Sodium Chloride (Saline Flush) 10 ml FLUSH ASDIRECTED PRN PRN Reason: Keep Vein Open Sodium Chloride (Saline Flush) 2.5 ml FLUSH ASDIRECTED PRN PRN Reason: Keep Vein Open Sodium Chloride (Normal Saline) 10 ml IV ASDIRECTED PRN PRN Reason: IV Use Sodium Chloride (Saline Flush) 10 ml FLUSH ASDIRECTED PRN PRN Reason: Keep Vein Open Sodium Chloride (Saline Flush) 2.5 ml FLUSH ASDIRECTED PRN PRN Reason: Keep Vein Open Sodium Chloride (Normal Saline) 10 ml IV ASDIRECTED PRN PRN Reason: IV Use Discontinued Medications Citric Acid/Sodium Citrate (Bicitra Solution) 30 ml PO ONETIME ONE Stop: 07/06/20 01:46 Last Admin: 07/06/20 02:25 Dose: 30 ml Documented by: Cyclobenzaprine HCl (Flexeril) 10 mg PO ONETIME ONE Stop: 07/05/20 22:50 Last Admin: 07/05/20 23:16 Dose: 10 mg Documented by: Cyclobenzaprine HCl (Flexeril) Confirm Administered Dose 10 mg .ROUTE .STK-MED ONE Stop: 07/05/20 23:14 Last Admin: 07/06/20 22:20 Dose: Not Given Documented by: Ephedrine Sulfate (Ephedrine Sulfate) Confirm Administered Dose 50 mg .ROUTE .STK-MED ONE Stop: 07/06/20 02:40 Fentanyl (Sublimaze) 50 mcg IVPUSH Q5M PRN PRN Reason: Pain (severe 7-10) Stop: 07/07/20 03:06 Cefazolin Sodium/Dextrose (Ancef 2 Gm/50 Ml) Confirm Administered Dose 50 mls @ as directed .ROUTE .STK-MED ONE Stop: 07/06/20 02:03 Last Admin: 07/06/20 22:18 Dose: Not Given Documented by: Oxytocin/Sodium Chloride (Oxytocin 30 Unit/500 Ml-Ns) Confirm Administered Dose 30 unit in 500 mls @ as directed .ROUTE .STK-MED ONE Stop: 07/06/20 02:03 Last Admin: 07/06/20 22:18 Dose: Not Given Documented by: Ketorolac Tromethamine (Toradol) 30 mg IVPUSH Q6H [facility] Stop: 07/07/20 03:16 Last Admin: 07/07/20 03:49 Dose: 30 mg Documented by: Morphine Sulfate (Duramorph Pf) Confirm Administered Dose 10 mg .ROUTE .STK-MED ONE Stop: 07/06/20 01:57 Nalbuphine HCl (Nubain) 2.5 mg IVPUSH Q3H PRN PRN Reason: Pruritis Stop: 07/07/20 03:06 Last Admin: 07/06/20 04:51 Dose: 2.5 mg Documented by: Octyl Cyanoacrylate (Dermabond Advance) Confirm Administered Dose 1 applic .ROUTE .STK-MED ONE Stop: 07/06/20 02:18 Last Admin: 07/06/20 22:18 Dose: Not Given Documented by: Ondansetron HCl (Zofran) Confirm Administered Dose 4 mg .ROUTE .STK-MED ONE Stop: 07/06/20 02:50 Propofol (Diprivan 20 Ml) Confirm Administered Dose 200 mg .ROUTE .STK-MED ONE Stop: 07/06/20 01:57 - Infant Interaction Infant Disposition, : [place] in Room with Family Infant Interaction: Holding Infant Feeding: Attempted ; Nursed Fair/Poor Support Person: Significant Other - Recovery Exam Fundal Tone: Firm Fundal Level: 1 Fingerbreadths Below Umbilicus Fundal Placement: Midline Lochia Amount: Scant Lochia Color: Rubra/Red Perineum Description: Intact, Minimal Bruising/Swelling Episiotomy/Laceration: Approximated Bladder Status: Voiding Urinary Elimination: Voided - Exam General: Alert, Oriented HEENT: Pupils Equal Neck: Supple Lungs: Clear to Auscultation, Normal Respiratory Effort Cardiovascular: Regular Rate, Regular Rhythm GI/Abdominal Exam: Normal Bowel Sounds, Soft, Non-Tender, No Organomegaly, No Distention, No Abnormal Bruit, No Mass, Pelvis Stable Extremities: Normal Inspection, Normal Range of Motion, Non-Tender, No Pedal Edema, Normal Capillary Refill Skin: Warm, Dry, Intact Wound/Incisions: Healing Well Neurological: No New Focal Deficit Psy/Mental Status: Alert, Normal Affect, Normal Mood - Problem List Review Problem List Initiated/Reviewed/Updated: Yes - My Orders Last 24 Hours: My Active Orders 07/07/20 09:00 Ibuprofen [Motrin] 800 mg PO Q8H PRN - Plan Plan:: A: presenting to L&D at 37 3/7 weeks (ZIA: 07/23/20) with complaints of severe pelvic pain/pressure. States that she was adjusted by a chiropractor on Monday (07/01) due to increasing pelvic pain/discomfort. Says that she felt better for a few days, but now it is back. She describes it as intermittent and sharp in low groin. Reports some nausea, but states, "I've been dealing with that my whole ". Also reports some loose stool today. Denies feeling contractions; LOF; vaginal itching, odor, discharge, or bleeding. SVE by nurse noted cervix as long, thick, and closed, -3 station. Vertex presentation by George'alok and confirmed by handheld ultrasound. Afebrile; VSS. P: Will give IV fluids and flexeril 10 mg; continuous FHR tracing to be done. Dr. Mahajan updated.
== END 2020-07-08 12:58 | disposition home or self-care (01) | DRG 788 ==
LOC: MW.OBCHECK 22:10 → MW.OB 22:12 → MW.OBCHECK 07-06 01:45 → MW.OB 07-06 01:45 → OBSVTOIN 07-06 01:45 → MW.OB 07-06 08:00
PROVIDERS: ADMIT Obstetrics & Gynecology; ATTEND Obstetrics & Gynecology
PROC: 10D00Z1 Extraction of Products of Conception, Low, Open Approach (ICD-10-PCS; principal; 2020-07-06)
DX: O45.93 Premature separation of placenta, unspecified, third trimester (principal); Z3A.37 37 weeks gestation of pregnancy; Z37.0 Single live birth; Z20.822 Contact with and (suspected) exposure to COVID-19
CPT/HCPCS: 01961; 36415; 59025; 76815; 76815-26; 85014; 85018; 85027; 86592; 86850; 86900; 86901; 88307; A9270-GY; J0690; J1885; J2270; J2300; J2405; J2590; J2704; J7120; U0002

== ENCOUNTER 2023-06-29 11:55 | Emergency (ER) | payer MEDICAID ==
[2023-06-29 12:28] LABS: APPEARANCE,URINE SLT CLOUDY; BILIRUBIN,URINE NEGATIVE (NEGATIVE); COLOR,URINE YELLOW; GLUCOSE,URINE NEGATIVE (NEGATIVE); KETONES,URINE NEGATIVE (NEGATIVE); LEUKOCYTE ESTERASE,URINE NEGATIVE (NEGATIVE); NITRITE,URINE NEGATIVE (NEGATIVE); OCCULT BLOOD,URINE NEGATIVE (NEGATIVE); PROTEIN,URINE TRACE mg/dL (NEGATIVE)
[2023-06-29 12:39] LABS: BASOPHILS ABSOLUTE AUTO 0.02 K/uL (0.00-0.20); BASOPHILS PERCENT AUTO 0.3 % (0.0-1.0); EOSINOPHILS ABSOLUTE AUTO 0.06 K/uL (0.00-0.45); EOSINOPHILS PERCENT AUTO 0.9 % (0.0-6.0); HEMATOCRIT 37.2 % (37.0-47.0); HEMOGLOBIN 12.7 g/dL (12.0-16.0); IMMATURE GRAN ABSOLUTE AUTO 0.01 K/uL (0.00-0.05); IMMATURE GRAN PERCENT AUTO 0.1 % (0.0-0.4); LYMPHOCYTES ABSOLUTE AUTO 1.48 K/uL (1.00-4.80); LYMPHOCYTES PERCENT AUTO 21.7 % (24.0-44.0); MEAN CORPUSCULAR HEMOGLOBIN 27.9 pg (28.0-32.0); MEAN CORPUSCULAR HGB CONC 34.1 g/dL (32.0-36.0); MEAN CORPUSCULAR VOLUME 81.8 fL (83.0-99.0); MEAN PLATELET VOLUME 10.3 fL (9.4-12.3); MONOCYTES ABSOLUTE AUTO 0.52 K/uL (0.00-0.80); MONOCYTES PERCENT AUTO 7.6 % (0.0-8.0); NEUTROPHILS ABSOLUTE AUTO 4.74 K/uL (1.80-7.70); NEUTROPHILS PERCENT AUTO 69.4 % (41.0-71.0); PLATELET COUNT,PLT 237 K/uL (150-400); RED BLOOD CELL COUNT 4.55 M/uL (4.10-5.30); WHITE BLOOD CELL COUNT,WBC 6.83 K/uL (3.9-11.3)
[2023-06-29 12:41] LABS: AMORPHOUS SEDIMENT,URINE MODERATE (NEGATIVE); BACTERIA,URINE 1+ (NEGATIVE); EPITHELIAL CELLS,URINE FEW (NONE-FEW); RBC,URINE 0-2 (0-2/HPF); WBC,URINE 0-4 (0-5/HPF)
[2023-06-29 13:01] LABS: A/G RATIO 0.9 (0.9-1.6); ALBUMIN 3.2 g/dL (3.4-5.0); BILIRUBIN TOTAL 0.2 mg/dL (0.2-1.0); CALCIUM 8.8 mg/dL (8.5-10.1); CARBON DIOXIDE,CO2 25.3 mmol/L (21.0-32.0); CREATININE 0.6 mg/dL (0.6-1.0); EST CRCL DRUG DOSING (CG) 125.92 mL/min; POTASSIUM,K 4.4 mmol/L (3.5-5.1); PROTEIN TOTAL,TP 6.9 g/dL (6.4-8.2)
== END 2023-06-29 14:04 | disposition home or self-care (01) ==
LOC: MW.ED 11:55
DX: O20.0 Threatened abortion (principal); R82.71 Bacteriuria; Z3A.10 10 weeks gestation of pregnancy
CPT/HCPCS: 36415; 80053; 81001; 83690; 84702; 85025; 86900; 86901; 99284

== ENCOUNTER 2024-02-02 13:24 | Inpatient (IN) | payer MEDICAID ==
[2024-02-02] MEDS ORDERED: Sodium Chloride 0.9% 20 ML SDV IV PRN (13:54)
[2024-02-02] MEDS ORDERED: Lidocaine 1% 50 ML MDV INJECT PRN (13:54)
[2024-02-02] MEDS ORDERED: Sodium Chloride 0.9% 10 ML Syringe FLUSH PRN (13:54)
[2024-02-02] MEDS ORDERED: Carboprost Tromethamine 250 MCG/1 mL Vial IM PRN (13:54)
[2024-02-02] MEDS ORDERED: Ondansetron 4 MG/2 ML SDV IVPUSH PRN (13:54)
[2024-02-02] MEDS ORDERED: Water For Irrigation,Sterile 1,000 ML Container IRR PRN (13:54)
[2024-02-02] MEDS ORDERED: Methylergonovine 0.2 MG/1 ML Amp IM PRN (13:54)
[2024-02-02] MEDS ORDERED: Sodium Chloride 0.9% 2.5 ML Syringe FLUSH PRN (13:54)
[2024-02-02] MEDS ORDERED: Tranexamic Acid IN NACL,ISO-OS 1,000 MG in Premix Bag 1 BAG IV PRN (13:54)
[2024-02-02] MEDS ORDERED: Misoprostol 200 MCG Tab PO PRN (13:54)
[2024-02-02] MEDS ORDERED: Oxytocin/0.9 % Sodium Chloride 30 UNIT/500 ML BAG IV SCH (14:00)
[2024-02-02 15:44] LABS: HEMATOCRIT 37.4 % (37.0-47.0); HEMOGLOBIN 12.3 g/dL (12.0-16.0); MEAN CORPUSCULAR HEMOGLOBIN 26.9 pg (28.0-32.0); MEAN CORPUSCULAR HGB CONC 32.9 g/dL (32.0-36.0); MEAN CORPUSCULAR VOLUME 81.7 fL (83.0-99.0); MEAN PLATELET VOLUME 11.3 fL (9.4-12.3); PLATELET COUNT,PLT 211 K/uL (150-400); RED BLOOD CELL COUNT 4.58 M/uL (4.10-5.30); WHITE BLOOD CELL COUNT,WBC 9.15 K/uL (3.9-11.3)
[2024-02-02] MEDS ORDERED: ePHEDrine 50 MG/ML SDV IVPUSH PRN (21:56)
[2024-02-02] MEDS ORDERED: Phenylephrine HCl In 0.9% NaCl 1 MG/10 ML Syringe IVPUSH PRN (21:56)
[2024-02-02] MEDS ORDERED: dexmedeTOMIDine HCl 200 MCG/2 ML SDV EPIDUR SCH (22:00)
[2024-02-02] MEDS: Butorphanol 2 MG/ML SDV IVPUSH PRN (22:01)
[2024-02-03] MEDS: Lactated Ringers 1,000 ML IV SCH (05:10)
[2024-02-03] MEDS: Ropivacaine HCl/PF 400 MG in Premix Bag 1 BAG EPIDUR SCH (05:35)
[2024-02-03] MEDS ORDERED: Lanolin 100% Cream 7 GM Tube TOP PRN (10:45)
[2024-02-03] MEDS ORDERED: Docusate Sodium 100 MG Cap PO PRN (10:45)
[2024-02-03] MEDS ORDERED: Ibuprofen 800 MG Tab PO PRN (10:45)
[2024-02-03] MEDS ORDERED: Acetaminophen 500 MG Tab PO PRN (10:45)
[2024-02-03] MEDS: Witch Hazel Medicated Pads 40/Jar TOP PRN (13:51)
[2024-02-03] MEDS: Benzocaine/Menthol 20%-0.5% Spray 78 GM Cannister TOP PRN (13:51)
[2024-02-04 06:47] LABS: HEMATOCRIT 31.2 % (37.0-47.0); HEMOGLOBIN 9.8 g/dL (12.0-16.0)
== END 2024-02-04 16:40 | disposition home or self-care (01) | DRG 807 ==
LOC: MW.OBCHECK 13:24 → MW.OB 13:24 → MW.OBCHECK 13:54 → MW.OB 13:54 → OBSVTOIN 13:54 → MW.OB 02-03 14:00
PROVIDERS: ADMIT Obstetrics & Gynecology Obstetrics; ATTEND Obstetrics & Gynecology Obstetrics
PROC: 10E0XZZ Delivery of Products of Conception, External Approach (ICD-10-PCS; principal; 2024-02-02)
PROC: 3E0R3BZ Introduction of Anesthetic Agent into Spinal Canal, Percutaneous Approach (ICD-10-PCS; 2024-02-02)
PROC: 00HU33Z Insertion of Infusion Device into Spinal Canal, Percutaneous Approach (ICD-10-PCS; 2024-02-02)
DX: O42.02 Full-term premature rupture of membranes, onset of labor within 24 hours of rupture (principal); Z37.0 Single live birth; O48.0 Post-term pregnancy; Z3A.41 41 weeks gestation of pregnancy; O99.214 Obesity complicating childbirth; O34.211 Maternal care for low transverse scar from previous cesarean delivery
CPT/HCPCS: 36415; 51702; 59025; 59409; 84112; 85014; 85018; 85027; 86592; 86850; 86900; 86901; A9270-GY; J0595; J2795; J7120

== ENCOUNTER 2025-04-14 09:53 | Emergency (ER) | payer MEDICAID ==
[2025-04-14 10:09] LABS: BASOPHILS ABSOLUTE AUTO 0.01 K/uL (0.00-0.20); BASOPHILS PERCENT AUTO 0.2 % (0.0-1.0); EOSINOPHILS ABSOLUTE AUTO 0.10 K/uL (0.00-0.45); EOSINOPHILS PERCENT AUTO 1.8 % (0.0-6.0); IMMATURE GRAN ABSOLUTE AUTO 0.01 K/uL (0.00-0.05); IMMATURE GRAN PERCENT AUTO 0.2 % (0.0-0.4); LYMPHOCYTES ABSOLUTE AUTO 1.63 K/uL (1.00-4.80); LYMPHOCYTES PERCENT AUTO 29.5 % (24.0-44.0); MEAN PLATELET VOLUME 9.6 fL (9.4-12.3); MONOCYTES ABSOLUTE AUTO 0.40 K/uL (0.00-0.80); MONOCYTES PERCENT AUTO 7.2 % (0.0-8.0); NEUTROPHILS ABSOLUTE AUTO 3.38 K/uL (1.80-7.70); NEUTROPHILS PERCENT AUTO 61.1 % (41.0-71.0); NRBC ABSOLUTE 0.00 K/uL (0.00-0.02); NRBC PERCENT 0.0 /100WBC (0.0-0.2); PLATELET COUNT,PLT 281 K/uL (150-400); RED BLOOD CELL COUNT 5.13 M/uL (4.10-5.30); WHITE BLOOD CELL COUNT,WBC 5.53 K/uL (3.9-11.3)
[2025-04-14 10:30] LABS: GLUCOSE,URINE NEGATIVE (NEGATIVE); OCCULT BLOOD,URINE LARGE (NEGATIVE)
[2025-04-14 10:31] LABS: APPEARANCE,URINE CLOUDY
[2025-04-14 10:40] LABS: EPITHELIAL CELLS,URINE RARE (NONE-FEW)
[2025-04-14 10:52] LABS: A/G RATIO 1.0 (0.9-1.6); ALANINE AMINOTRANSFERASE,ALT 24.0 IU/L (14-63); ASPARTATE AMNIOTRANSFERASE,AST 13.0 IU/L (15-37); BILIRUBIN TOTAL 0.2 mg/dL (0.2-1.0); BLOOD UREA NITROGEN,BUN 15.0 mg/dL (7.0-18.0); CARBON DIOXIDE,CO2 27.9 mmol/L (21.0-32.0); CHLORIDE,CL 105.0 mmol/L (98-107); CREATININE 0.6 mg/dL (0.6-1.0); EST CRCL DRUG DOSING (CG) 123.77 mL/min; ESTIMATED GFR 128.0 mL/min (>60); GLUCOSE RANDOM 98.0 mg/dL (74-106); HCG QUANTITATIVE 7.0 mIU/mL; POTASSIUM,K 4.0 mmol/L (3.5-5.1); PROTEIN TOTAL,TP 7.3 g/dL (6.4-8.2); SODIUM,NA 141.0 mmol/L (136-145)
== END 2025-04-14 13:06 | disposition home or self-care (01) ==
LOC: MW.ED 09:53
DX: O03.9 Complete or unspecified spontaneous abortion without complication (principal); E66.9 Obesity, unspecified; Z79.899 Other long term (current) drug therapy; Z68.33 Body mass index [BMI] 33.0-33.9, adult
CPT/HCPCS: 36415; 76817; 76817-26; 80053; 81001; 84702; 85025; 86900; 86901; 99284